=== PATIENT | male | born 1935 | race Caucasian/White ===

== ENCOUNTER 2017-12-22 15:12 | Outpatient (CLI) | payer MEDICARE, OTHER | END 2017-12-22 15:13 | disposition home or self-care (01) | LOC: BICMAMMO 15:12 | PROVIDERS: ATTEND Internal Medicine | DX: M81.0 Age-related osteoporosis without current pathological fracture (principal) | CPT/HCPCS: 77080 ==

== ENCOUNTER 2018-05-28 14:53 | Outpatient (CLI) | payer MEDICARE, OTHER | END 2018-05-28 14:54 | disposition home or self-care (01) | LOC: BICULT 14:53 | PROVIDERS: ATTEND Internal Medicine | DX: Z03.89 Encounter for observation for other suspected diseases and conditions ruled out (principal) | CPT/HCPCS: 93880 ==

== ENCOUNTER 2019-10-01 11:19 | Emergency (ER) | payer MEDICARE, OTHER ==
--- NOTE | 2019-10-01 11:46 | RAD ---
EXAM: Two views chest PROVIDED CLINICAL HISTORY: Difficulty breathing COMPARISON: None FINDINGS: Cardiac and mediastinal silhouette appears within normal limits. Lungs appear free of significant opa city. No pleural fluid or pneumothorax apparent. IMPRESSION: No evidence for an acute cardiopulmonary process.
--- NOTE | 2019-10-01 12:35 | CT ---
CT HEAD WITHOUT CONTRAST: HISTORY: Fall. Head injury. FINDINGS: There is no evidence of acute intracranial hemorrhage or infarct. 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 Mild diffuse cortical atrophy. There is no mass effect or shift of midline structures. The visualized paranasal sinuses remain well aerated. IMPRESSION: Chronic type findings as detailed above. No acute intracranial abnormalities are demonstrated. POS: BST
[2019-10-01 12:44] LABS: INR-International Normal Ratio 1.2; Prothrombin Time 15.3 SEC (12.0-14.7)
[2019-10-01 12:47] LABS: ALT (SGPT) 24 U/L (8-55); AST (SGOT) 43 U/L (5-34); Albumin 3.8 g/dL (3.4-4.8); Alkaline Phosphatase 85 U/L (40-110); Anion Gap 13 mmol/L (10-20); BUN (Urea Nitrogen) 12 mg/dL (8.4-25.7); Bilirubin, Total 1.1 mg/dL (0.2-1.2); Calc. Creatinine Clearance 0 mL/min (70-130); Calcium 9.4 mg/dL (7.8-10.44); Carbon Dioxide 25 mmol/L (23-31); Chloride 107 mmol/L (98-107); Estimated GFR-MDRD Greater than 90; Globulin 3.6 g/dL (2.4-3.5); Glucose 138 mg/dL (83-110); Potassium 3.8 mmol/L (3.5-5.1); Protein, Total 7.4 g/dL (5.8-8.1); Sodium 141 mmol/L (136-145)
[2019-10-01 12:52] LABS: #Eosinphils 0.1 thou/uL (0.0-0.7); #Lymphocytes 0.8 thou/uL (1.20-3.40); #Monocytes 0.3 thou/uL (0.11-0.59); %Basophils 0.7 % (0.0-1.0); %Eosinophils 2.1 % (0.0-10.0); %Lymphocytes 18.7 % (21.0-51.0); %Monocytes 7.3 % (0.0-10.0); %Neutrophils 71.2 % (42.0-75.0); Hemoglobin 14.2 g/dL (14.0-18.0); Mean Corpuscular HGB CONC 33.9 g/dL (32.0-36.0); Mean Corpuscular Hemoglobin 31.4 pg (27.0-31.0); Mean Corpuscular Volume 92.5 fL (78.0-98.0); Platelet Count 79 thou/uL (130-400); Platelet Morphology Comment Appears Decreased; RBC Distribution Width 14.2 % (11.5-14.5); Red Blood Cell (RBC) Count 4.54 mill/uL (4.70-6.10); White Blood Cell (WBC) Count 4.2 thou/uL (4.8-10.8)
[2019-10-01 12:53] LABS: MDiff Complete? YES
--- NOTE | 2019-10-01 13:38 | CT ---
EXAM: CT Chest WO Con PROVIDED CLINICAL HISTORY: Chest pain COMPARISON: None FINDINGS: Vascular calcification including coronary calcium is demonstrated. The heart, pericardium and great v essels are suboptimally evaluated in the absence of IV contrast material but demonstrate an otherwise unremarkable unenhanced CT appearance. The airway appears patent and of normal caliber. 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 There is no pleural fluid or pneumothorax apparent. Bibasilar subsegmental atelectatic changes are se en in addition to calcified pleural plaques involving the left posterior hemithorax. There are nondisplaced fractures involving the right lateral fourth through seventh ribs. The osseous structures demonstrate no concerning lytic or blastic lesions. The visualized portions of the spleen appear prominent. A small hiatal hernia seen. Surgical clips ar e seen in the region of the gastroesophageal junction. IMPRESSION: 1. Nondisplaced fourth through seventh right lateral rib fractures. 2. Vascular calcification including coronary calcium.
== END 2019-10-01 14:30 | disposition home or self-care (01) ==
LOC: ERS 11:19
DX: S22.41XA Multiple fractures of ribs, right side, initial encounter for closed fracture (principal); D69.6 Thrombocytopenia, unspecified; Z79.82 Long term (current) use of aspirin; W19.XXXA Unspecified fall, initial encounter; Y93.K1 Activity, walking an animal
CPT/HCPCS: 70450; 71046; 71250; 80053; 84484; 85025; 85610; 85730; 93005

== ENCOUNTER 2019-10-19 11:35 | Outpatient (CLI) | payer MEDICARE, OTHER ==
--- NOTE | 2019-10-19 12:02 | RAD ---
XR Chest Pa Lat STANDARD HISTORY: Rib fractures COMPARISON: 10/01/2019 FINDINGS: The heart size is normal. The lungs are well expanded without focal areas of consolidation, pneumothorax or pleural effusions. There are degenerative changes in the spine. The rib fractures noted on the right are again seen. IMPRESSION: No radiographic evidence of acute cardiopulmonary process.
== END 2019-10-19 11:36 | disposition home or self-care (01) ==
LOC: BICRAD 11:35
PROVIDERS: ATTEND Physician Assistant
DX: S22.39XA Fracture of one rib, unspecified side, initial encounter for closed fracture (principal)
CPT/HCPCS: 71046